=== PATIENT | male | born 1980 | race Caucasian/White ===

== ENCOUNTER 2021-08-29 22:17 | Emergency (ER) | payer OTHER, SELFPAY ==
--- NOTE | 2021-08-29 22:32 | ED_ITS ---
HPI - Overdose General Chief Complaint: Overdose Stated Complaint: OVERDOSE Time Seen by Provider: 08/29/21 22:30 Source: patient and EMS Mode of arrival: EMS Limitations: other (Patient has amnesia of events) History of Present Illness HPI Narrative: 41-year-old male who was brought to the emergency department for evaluation of accidental overdose from using intranasal opiates. According to the paramedics, a bystander saw car idling for at least 15 minutes and called the police. The police found the patient slumped over and unresponsive 10 knocking on the window. Police then broke the passenger side window and administered intranasal Narcan 4 mg x 2 doses with only minimal response. When the paramedics arrived, they states the patient became more responsive and during transport he was awake and able answer questions. Patient does admit to using intranasal opiates. He states that he has been sober for 3 and half years and this is the 1st time he has used over that period of time. He has no memory of buying the narcotics or any events leading up to him waking up in the ambulance. General Worker vital signs revealed blood pressure of 135/83, heart rate of 115, respiratory rate of 22 and O2 saturation of 94% on room air. Point of care glucose was 477. The patient states that he has a history of diabetes and hypertension but these resolved after had a gastric bypass surgery 8 months prior. He has not noticed any urinary frequency, increased thirst or change in his vision. Related Data Allergies Allergy/AdvReac Type Severity Reaction Status Date / Time No Known Allergies Allergy Unknown NONE Verified 08/29/21 22:34 Review of Systems Review of Systems: Yes all other systems are reviewed and are negative [facility] Past Medical History [facility] Narrative: Past medical history: Diabetes, hypertension-resolved after bypass surgery, COVID-19 infection approximately 1 year prior. Past surgical history: Gastric bypass surgery 8 months prior. Social history: Patient smokes 1/2 pack of cigarettes per day times 11 years. Denies alcohol use. The patient has a history of opiate drug use and states that he had sobriety for 3 and half years until he used intranasal opiates prior to coming to the emergency department. Medical History (Updated 08/30/21 @ 05:07 by Zach Nick MD) COVID-19 Heroin addiction Hypertension Surgical History (Updated 08/29/21 @ 22:39 by Elisa Grover RN) History of Jenny-en-Y gastric bypass Social History Social History Alcohol intake: never Patient Tobacco Use Status: Current everyday Tobacco user Use of substances other than those prescribed or required for medical reasons: Yes Substance Use Type: Heroin Physical Exam Vital Signs: Vital Signs: Last Vital Signs Temp 97.8 F 08/29/21 22:35 Pulse 86 08/30/21 02:30 Resp 18 08/30/21 02:30 BP 96/62 08/30/21 02:30 Pulse Ox 99 08/30/21 02:30 Body Mass Index 26.5 Const: Other: The patient is somnolent but he does wake up and answers questions appropriately, does not appear to be in respiratory distress. HENMT: Head: Yes normal to inspection, Yes normocephalic and Yes atraumatic Ears: external ears normal General nose exam: Normal external nose present Face and sinus: Yes normal facial exam Mouth: Normal oral and palatal mucosa present Throat: Yes posterior oropharynx normal Eyes: General: appearance normal, both eyes and all related structures Pupils: Equal, round and reactive pupils present Neck: Neck: Yes normal visual inspection, Yes no lymphadenopathy, Yes trachea midline and Yes supple Chest: Chest palpation & inspection: normal inspection of the chest and normal palpation of entire chest wall Resp: Effort & Inspection: normal respiratory effort and able to speak in complete sentences Auscultation: clear to auscultation bilaterally Cardio: Rate: tachycardic Rhythm: regular rhythm Heart sounds: S1 normal heart sound present, S2 normal heart sound present and no murmurs GI: Inspection: Yes normal to inspection Palpation (GI): Soft to palpation, nontender and no guarding Auscultation: normal bowel sounds : General: Yes no CVA tenderness Back/Spine/Pelvis: Back: no CVA tenderness Skin: General skin exam: no rashes or lesions noted Neuro: Cranial nerves: Yes CN's II-XII intact bilaterally and Yes Equal, round and reactive pupils present Cognition (Neuro): normal cognition Motor exam (neuro): 5/5 motor strength present throughout Extrem: General: Yes normal to inspection Psych: Appearance: grossly normal Speech and movement: Normal speech and mo vement present Affect: Other affect and mood findings present (Somnolent) Attitude: cooperative Thought process: Normal thought process present Thought content: Normal thought content present Course Course Course Narrative: 41-year-old male who presents emergency department for evaluation of altered mental status after using intranasal opiates. Patient was found unresponsive in his car and police administered intranasal Narcan 4 mg x 2 and the patient eventually woke up when the paramedics arrived. Patient was found to be tachycardic and his point of care glucose was 447. Patient does have a history of diabetes but has been off medications since his gastric bypass. In the emergency department patient is somnolent but arousable and able answer all questions appropriately does not appear to be in respiratory distress. Point of care glucose in the emergency department was 341. Patient was ordered to get normal saline x1 L in 5 units of regular insulin IV. I will check a CBC, CMP and urine drug screen. The patient was placed on a cardiac and pulse oximetry monitor and will watch the patient in the emergency department anywhere from 2-4 hours to make sure he does not developed narcosis again. 0146: The patient's laboratory evaluation was unremarkable, the patient's point of care glucose improved after the above treatment and is not 67. Patient has a wide awake and has been observed for at least 4 hours with no narcosis noted. The patient is concerned about his overdose and does want to talk to a crisis counselor, therefore N will be consult. 0503: Patient was seen by N. They will refer the patient to the care team in the morning and the care team will range for outpatient counseling and arrange a ride for the patient to his arrangement. The patient will be kept here in the emergency department until he is evaluated by the care team in the morning. 0632: The patient states that he does not want a wait any longer to talk to the care dream and he is requesting to leave. The patient is not suicidal or homicidal and he can pursue detox as an outpatient therefore the patient will be discharged home. MDM - Overdose Lab Data Result diagrams: 08/29/21 22:57 08/29/21 22:57 Labs: Lab Results 08/29/21 08/29/21 08/29/21 Range/Units 22:35 22:57 22:57 WBC 26.1 H (4.8-10.8) X10*3/uL RBC 4.29 L (4.60-5.80) X10*6/uL Hgb 14.0 (14.0-18.0) g/dl Hct 40.2 L (42.0-52.0) % MCV 93.7 (80.0-98.0) fL MCH 32.6 (27.0-33.0) pg MCHC 34.8 (31.0-36.0) g/dl RDW 12.3 (11.0-16.0) % Plt Count 230 (160-400) X10*3/uL MPV 10.0 (9.4-12.4) fL Immature Gran % (Auto) 0.6 H (0.0-0.4) % Neut % (Auto) 89.8 H (45-73) % Lymph % (Auto) 3.8 L (20-40) % [place] % (Auto) 5.1 (2-11) % Eos % (Auto) 0.5 (0-4) % Baso % (Auto) 0.2 (0-2) % Lymph # (Auto) 1.0 L (1.2-4.9) X10*3/uL [place] # (Auto) 1.3 H (0.1-1.2) X10*3/uL Eos # (Auto) 0.1 (0.0-0.4) X10*3/uL Baso # (Auto) 0.0 (0.0-0.2) X10*3/uL Abs Immat Gran (auto) 0.15 H (0.00-0.03) X10*3/uL Absolute Neuts (auto) 23.4 H (2.0-8.3) x10*3/uL Absolute Nucleated RBC 0.000 (0.0-0.012) X10*3/uL Nucleated RBC % (auto) 0.0 (0.0-0.2) /100WBC Smear Tech's Comments VERIFIED Sodium Cancelled Potassium Cancelled Chloride Cancelled Carbon Dioxide Cancelled Anion Gap Cancelled BUN Cancelled Creatinine Cancelled Estim Creat Clear Calc Cancelled Estimated GFR Cancelled POC Glucose 341 H (60-115) mg/dL Random Glucose Cancelled Calcium Cancelled Total Bilirubin Cancelled AST Cancelled ALT Cancelled Alkaline Phosphatase Cancelled Total Protein Cancelled Albumin Cancelled Ethyl Alcohol mg/dL 08/29/21 08/30/21 Range/Units 22:57 01:12 WBC (4.8-10.8) X10*3/uL RBC (4.60-5.80) X10*6/uL Hgb (14.0-18.0) g/dl Hct (42.0-52.0) % MCV (80.0-98.0) fL MCH (27.0-33.0) pg MCHC (31.0-36.0) g/dl RDW (11.0-16.0) % Plt Count (160-400) X10*3/uL MPV (9.4-12.4) fL Immature Gran % (Auto) (0.0-0.4) % Neut % (Auto) (45-73) % Lymph % (Auto) (20-40) % [place] % (Auto) (2-11) % Eos % (Auto) (0-4) % Baso % (Auto) (0-2) % Lymph # (Auto) (1.2-4.9) X10*3/uL [place] # (Auto) (0.1-1.2) X10*3/uL Eos # (Auto) (0.0-0.4) X10*3/uL Baso # (Auto) (0.0-0.2) X10*3/uL Abs Immat Gran (auto) (0.00-0.03) X10*3/uL Absolute Neuts (auto) (2.0-8.3) x10*3/uL Absolute Nucleated RBC (0.0-0.012) X10*3/uL Nucleated RBC % (auto) (0.0-0.2) /100WBC Smear Tech's Comments Sodium Potassium Chloride Carbon Dioxide Anion Gap BUN Creatinine Estim Creat Clear Calc Estimated GFR POC Glucose 67 (60-115) mg/dL Random Glucose Calcium Total Bilirubin AST ALT Alkaline Phosphatase Total Protein Albumin Ethyl Alcohol < 10 mg/dL Discharge Plan Discharge Clinical Impression: Opiate overdose Patient Disposition: Home, Self-Care Instructions: Adult Overdose (ED) Additional Instructions: Please follow the [facility] an and Care Team instructions. Your are being discharged home with intranasal Narcan. If you are going to continue to use heroin, you should make sure that there is a sober person with you that is not using drugs and that this person can administer intranasal Narcan in the event that you stop breathing. Follow-up with your doctor in 2 days. Please return to the emergency department if your symptoms get worse or if you develop any symptoms that are concerning to you. If you are interested in getting into detox, please call the detox resource numbers that we provided for you.
[2021-08-29 22:35] VITALS: BP 108/71; BP 135/83; PULSE 102; PULSE 51; RESP 19; TEMP 36.6; O2SAT 92; O2SAT 93; BMI 26.5
[2021-08-29 22:40] LABS: Glucose, Whole Blood 341 mg/dL (60-115)
[2021-08-29 23:01] LABS: Basophils Percent Auto 0.2 % (0-2); Eosinophils Absolute Auto 0.1 X10*3/uL (0.0-0.4); Eosinophils Percent Auto 0.5 % (0-4); Hematocrit 40.2 % (42.0-52.0); Imm Gran Abs Auto 0.15 X10*3/uL (0.00-0.03); Imm Gran Pct Auto 0.6 % (0.0-0.4); Lymphocytes Percent Auto 3.8 % (20-40); MANUAL DIFF FLAG SCAN; Mean Corpuscular HGB Conc 34.8 g/dl (31.0-36.0); Mean Corpuscular Hemoglobin 32.6 pg (27.0-33.0); Mean Corpuscular Volume 93.7 fL (80.0-98.0); Monocytes Absolute Auto 1.3 X10*3/uL (0.1-1.2); Monocytes Percent Auto 5.1 % (2-11); Neutrophils Absolute Auto 23.4 x10*3/uL (2.0-8.3); Neutrophils Percent Auto 89.8 % (45-73); Platelet Count 230 X10*3/uL (160-400); Red Blood Count 4.29 X10*6/uL (4.60-5.80); Red Cell Distribution Width 12.3 % (11.0-16.0); SCAN SMEAR FLAG 1; White Blood Count 26.1 X10*3/uL (4.8-10.8)
[2021-08-29] MEDS: 0.9 % Sodium Chloride 1,000 ML 999 ML IV (23:04)
[2021-08-29] MEDS: Insulin Regular, Human 100 UNIT/ML 3 ML VIAL IVPUSH (23:07)
[2021-08-29 23:12] LABS: Ethanol < 10 mg/dL
--- NOTE | 2021-08-29 23:16 | HO.SUDE ---
CARE team met with pt to complete substance use disorder evaluation (SUDE). Pt arrived by ambulance after bystanders noticed that he was unconscious and unresponsive in his vehicle. They broke the windows and administered 8mg narcan. On approach pt's skin and lips are pale, his voice is raspy and quiet, and he makes no eye contact. He reported that this was the first time he had used in 3 years and 3 months. He previously used opiates and cocaine. He reported that he has been to detox facilities in the past and denied any residential treatment or medication assisted therapy, and reported that he had quit cold turkey. He denied other recent substance use prior to today. When this typewriter repairer offered supports and resources, pt did not respond to the question and instead asked this typewriter repairer about where his truck is and what happened to it. This typewriter repairer encouraged pt to let ED staff know if he'd like to speak with this typewriter repairer again prior to discharging from the ED. [place] [employer] officer came shortly after to give pt the info about his belongings and where his truck was towed to.
[2021-08-29 23:21] LABS: SLIDE REVIEW VERIFIED
--- NOTE | 2021-08-29 23:21 | PC.NURSE ---
Patient refused repeat blood draw asn urine sample. will attempt later
[2021-08-30 00:02] VITALS: BP 95/37; PULSE 92; RESP 18; O2SAT 97
[2021-08-30] MEDS: ondansetron HCL 4 MG/2 ML VIAL IVPUSH (00:11)
--- NOTE | 2021-08-30 00:11 | PC.NURSE ---
Care assumed upon RN's arrival to the ED at approximately 2350. Report received from charge account identification clerk. Pt found to be awake and alert, laying in stretcher without distress. Pt's skin is PWD, respirations even and unlabored and conversing in full and complete sentences. Pt unclear which hospital he was located at; reassurance provided. pt expressing concerns regarding his father and job finding out. Pt was noted to be off the vehicle monitor technician with no pulse ox in place; pt reports that he removed all of these things. Pt placed back on the vehicle monitor technician with VSS at this time. Pt provided with ice water per request however shortly after taking a couple sips stated this is sitting well with me and acknowledged nausea; MD aware and new orders obtained and administered. Pt aware that he must be medically cleared prior to discharged. RN will continue to monitor; call acharya is in reach.
--- NOTE | 2021-08-30 00:43 | PC.NURSE ---
This RN called [place] police on the patient's behalf to obtain information regarding his vehicle location and other possessions. Per dispatch the patient's car is located at [facility] in [place] and is on a 12 hour hold; specific time available is unknown. Pt's belongings are also confirmed to be at the police department in their property and per dispatch the pt will have to call Dwayne at [phone] to obtain his items; LT seymour is reported to work Mon-Fri 7a-3p with no ability to obtain items/belongings. pt aware and continues to report concern about obtaining items. Pt inquiring about what he can do to feel like a human asking if he can have the items removed from him (can technician) and then shower; education provided regarding need for monitoring and pt verbalized understanding. RN will continue to monitor.
[2021-08-30 01:17] LABS: Glucose, Whole Blood 67 mg/dL (60-115)
--- NOTE | 2021-08-30 01:41 | PC.NURSE ---
MD boucher to bedside to discuss results and disposition. Pt acknowledging that he has no where to go and is looking to speak to crisis. Per MD, pt was offered Care Team earlier but declined at that time. Plan at this time is for a [facility] consult related to OD to be placed. field enumerator to be made aware
--- NOTE | 2021-08-30 02:08 | PC.NURSE ---
CARE Team at bedside for discussion.
[2021-08-30 02:30] VITALS: BP 96/62; PULSE 86; RESP 18; O2SAT 99
--- NOTE | 2021-08-30 02:30 | MHC.CARE ---
CARE team support requested as a follow up to SUDE completed earlier. Pt denied SI/HI or wanting to use substances once he leaves the emergency department. He shared that he works as a parts specialist in [place] and that he drove to the area to visit his parents in [place] and meet up with some friends. He was driving and on the phone and when he passed an area where he knew that drugs were easily accessible he abruptly got off the phone, bought some, sniffed a bag, and then continued driving. He doesn't remember anything after this until he was revived with narcan. He expressed his frustrations with himself and feeling that he's ruined everything when he had been getting his life together. He was about to apply for pre-qualification to buy a condo and has been working at his job for 10 months. He is understandably concerned about how this will impact his employment, his living situation (he oversees his [facility]' recovery program in exchange for free rent), his legal record, and his father's health. Pt was encouraged to focus on the things he needs to do first to ensure his safety and stability and to work from there. He continued to decline any resources, as he is not from this area and if already aware of his local resources. CARE/recovery support team will assist pt transportation to the [facility] in the morning. Discussed plan of care with Dr. Nick.
--- NOTE | 2021-08-30 06:34 | PC.NURSE ---
patient stating that he was informed by colt from the care team told him to call a number for a ride. patient called and there was no answer stating that we could talk with the recovery coaches or care team when they come in for 1st shift. patient stating he was not waiting for them and wants his discharge paperwork. no distress noted ambulating steadily. stating he will try calling and find another way home. offered him a meal tray patient denied, and asked for discharge paperwork again.
[2021-08-30] MEDS: Naloxone HCl Nasal TAKE HOME 4 MG SPRAY NOSTRILALT (06:40)
== END 2021-08-30 06:46 | disposition home or self-care (01) ==
LOC: HO.ED 08-30 06:40
PROVIDERS: Emergency Provider Emergency Medicine Emergency Medical Services
DX: T40.601A Poisoning by unspecified narcotics, accidental (unintentional), initial encounter (principal); Y92.9 Unspecified place or not applicable; F17.200 Nicotine dependence, unspecified, uncomplicated; Z71.6 Tobacco abuse counseling; Z79.899 Other long term (current) drug therapy; Z98.84 Bariatric surgery status
CPT/HCPCS: 36415; 82077; 82947; 85025; 96374; 99284; J2405